=== PATIENT | female | born 1960 | race Caucasian/White ===

== ENCOUNTER 2020-12-24 11:35 | Outpatient (CLI) | payer OTHER, SELFPAY ==
[2020-12-24 12:11] LABS: SARS-CoV-2 Ag Negative (Negative)
== END 2020-12-24 11:36 | disposition home or self-care (01) ==
PROVIDERS: PCP Physician Assistant; Visit Provider Physician Assistant
DX: J20.9 Acute bronchitis, unspecified (principal); Z20.822 Contact with and (suspected) exposure to COVID-19
CPT/HCPCS: 87426; C9803